=== PATIENT | female | born 1970 | race Caucasian/White ===

== ENCOUNTER 2017-03-04 16:06 | Emergency (ER) | payer MEDICAID, OTHER ==
[2017-03-04] MEDS ORDERED: Sodium Chloride 0.9% 10 ML Syringe FLUSH PRN (16:29)
[2017-03-04] MEDS ORDERED: HYDROmorphone 1 MG/ML Syringe IVPUSH ONE ×2 (16:29→17:14)
[2017-03-04] MEDS ORDERED: Ondansetron 4 MG/2 ML SDV IVPUSH ONE (16:29)
[2017-03-04] MEDS ORDERED: Ondansetron 4 MG/2 ML SDV ONE (16:33)
[2017-03-04] MEDS ORDERED: HYDROmorphone 1 MG/ML Syringe ONE (16:34)
--- NOTE | 2017-03-04 17:27 | EDM.PDOC ---
ED HPI GENERAL MEDICAL PROBLEM - General Chief Complaint: Upper Extremity Injury/Pain Stated Complaint: POSS DISLOCATED SHOULDER Source of Information: Reports: Patient History Limitations: Reports: No Limitations Right Clavicle Pain Score (Numeric/FACES): 8 - Related Data Allergies Allergy/AdvReac Type Severity Reaction Status Date / Time adhesive tape Allergy Swelling Verified 03/04/17 16:19 codeine Allergy Nausea and Verified 02/05/14 08:52 Vomiting povidone-iodine Allergy Hives Verified 12/12/13 10:01 [From Betadine] soap [From Betadine] Allergy Hives Verified 12/12/13 10:01 Home Meds: Home Meds Estrogen,Con/M-Progest Acet [Prempro 0.3 MG-1.5 MG] 1 tab PO DAILY 12/12/13 [ History] Valsartan [Diovan] 80 mg PO DAILY 02/05/14 [History] Past Medical History Cardiovascular History: Reports: Hypertension 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 History: Reports: GERD 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: Psychiatric History: Reports: Anxiety, Depression - Past Surgical History HEENT Surgical History: Reports: Tonsillectomy GI Surgical History: Reports: EGD Female Surgical History: Reports: Section, Oophorectomy Social & Family History - Tobacco Use Smoking Status *Q: Current Every Day Smoker Years of Tobacco use: 3 Packs/Tins Daily: 0.5 - Caffeine Use Caffeine Use: Reports: Coffee - Alcohol Use Days Per Week of Alcohol Use: 0 - Recreational Drug Use Recreational Drug Use: No Course - Vital Signs Last Recorded V/S: Last Vital Signs Temp 36.7 C 03/04/17 16:21 Pulse 97 03/04/17 16:21 Resp 18 03/04/17 16:21 BP 175/95 H 03/04/17 16:21 Pulse Ox 93 L 03/04/17 16:21 - Orders/Labs/Meds Orders: Active Orders 24 hr Category Date Time Status Peripheral IV Care [RC] . DIRECTED Care 03/04/17 16:29 Ordered Chest 1V Frontal [CR] Stat Exams 03/04/17 16:32 Ordered Shoulder Comp Rt [CR] Stat Exams 03/04/17 16:32 Ordered Sodium Chloride 0.9% [Saline Flush] Med 03/04/17 16:29 Ordered 10 ml FLUSH ASDIRECTED PRN Peripheral IV Insertion Adult [OM.PC] Routine Oth 03/04/17 16:29 Ordered Medication Orders Sodium Chloride (Saline Flush) 10 ml FLUSH ASDIRECTED PRN PRN Reason: Keep Vein Open Last Admin: 03/04/17 17:10 Dose: 10 ml Meds: Medications Generic Name Dose Route Start Last Admin Trade Name Freq PRN Reason Stop Dose Admin Sodium Chloride 10 ml 03/04/17 16:29 03/04/17 17:10 Saline Flush FLUSH 10 ml ASDIRECTED PRN Administration Keep Vein Open Discontinued Medications Generic Name Dose Route Start Last Admin Trade Name Freq PRN Reason Stop Dose Admin Hydromorphone HCl 1 mg 03/04/17 16:29 03/04/17 16:34 Dilaudid IVPUSH 03/04/17 16:30 1 mg ONETIME ONE Administration Hydromorphone HCl Confirm 03/04/17 16:34 03/04/17 17:09 Dilaudid Administered 03/04/17 16:35 Not Given Dose 1 mg .ROUTE .STK-MED ONE Hydromorphone HCl 1 mg 03/04/17 17:14 03/04/17 17:18 Dilaudid IVPUSH 03/04/17 17:15 1 mg ONETIME ONE Administration Ondansetron HCl 4 mg 03/04/17 16:29 03/04/17 16:30 Zofran IVPUSH 03/04/17 16:30 4 mg ONETIME ONE Administration Ondansetron HCl Confirm 03/04/17 16:33 03/04/17 16:34 Zofran Administered 03/04/17 16:34 Not Given Dose 4 mg .ROUTE .STK-MED ONE Departure - Discharge Information Referrals: PCP,None [Primary Care Provider] - - My Orders Last 24 Hours: My Active Orders 03/04/17 16:29 Peripheral IV Care [RC] . DIRECTED Sodium Chloride 0.9% [Saline Flush] 10 ml FLUSH ASDIRECTED PRN Peripheral IV Insertion Adult [OM.PC] Routine 03/04/17 16:32 Chest 1V Frontal [CR] Stat Shoulder Comp Rt [CR] Stat - Assessment/Plan Last 24 Hours: My Active Orders 03/04/17 16:29 Peripheral IV Care [RC] . DIRECTED Sodium Chloride 0.9% [Saline Flush] 10 ml FLUSH ASDIRECTED PRN Peripheral IV Insertion Adult [OM.PC] Routine 03/04/17 16:32 Chest 1V Frontal [CR] Stat Shoulder Comp Rt [CR] Stat
--- NOTE | 2017-03-04 17:29 | EDM.PDOC ---
<Ike Rincon - Last Filed: 03/04/17 17:27> ED HPI GENERAL MEDICAL PROBLEM - General Chief Complaint: Upper Extremity Injury/Pain Stated Complaint: POSS DISLOCATED SHOULDER Time Seen by Provider: 03/04/17 16:30 Right Clavicle Pain Score (Numeric/FACES): 8 - Related Data Allergies Allergy/AdvReac Type Severity Reaction Status Date / Time adhesive tape Allergy Swelling Verified 03/04/17 16:19 codeine Allergy Nausea and Verified 02/05/14 08:52 Vomiting povidone-iodine Allergy Hives Verified 12/12/13 10:01 [From Betadine] soap [From Betadine] Allergy Hives Verified 12/12/13 10:01 Home Meds: Home Meds Estrogen,Con/M-Progest Acet [Prempro 0.3 MG-1.5 MG] 1 tab PO DAILY 12/12/13 [ History] Valsartan [Diovan] 80 mg PO DAILY 02/05/14 [History] Acetaminophen/oxyCODONE [Percocet 325-5 MG] 1 tab PO Q4H PRN #20 tablet [Rx] Past Medical History Cardiovascular History: Reports: Hypertension 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 History: Reports: 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: Psychiatric History: Reports: Anxiety, Depression - Past Surgical History HEENT Surgical History: Reports: Tonsillectomy GI Surgical History: Reports: EGD Female Surgical History: Reports: Section, Oophorectomy Social & Family History - Tobacco Use Smoking Status *Q: Current Every Day Smoker Years of Tobacco use: 3 Packs/Tins Daily: 0.5 - Caffeine Use Caffeine Use: Reports: Coffee - Alcohol Use Days Per Week of Alcohol Use: 0 - Recreational Drug Use Recreational Drug Use: No Course - Vital Signs Last Recorded V/S: Last Vital Signs Temp 36.7 C 03/04/17 16:21 Pulse 97 03/04/17 16:21 Resp 18 03/04/17 16:21 BP 175/95 H 03/04/17 16:21 Pulse Ox 93 L 03/04/17 16:21 - Orders/Labs/Meds Meds: Medications Discontinued Medications Generic Name Dose Route Start Last Admin Trade Name Freq PRN Reason Stop Dose Admin Diphtheria/Tetanus/Acell Pertussis 0.5 ml 03/04/17 18:12 03/04/17 18:22 Adacel IM 03/04/17 18:13 0.5 ml .ONCE ONE Administration Hydromorphone HCl 1 mg 03/04/17 16:29 03/04/17 16:34 Dilaudid IVPUSH 03/04/17 16:30 1 mg ONETIME ONE Administration Hydromorphone HCl Confirm 03/04/17 16:34 03/04/17 17:09 Dilaudid Administered 03/04/17 16:35 Not Given Dose 1 mg .ROUTE .STK-MED ONE Hydromorphone HCl 1 mg 03/04/17 17:14 03/04/17 17:18 Dilaudid IVPUSH 03/04/17 17:15 1 mg ONETIME ONE Administration Ondansetron HCl 4 mg 03/04/17 16:29 03/04/17 16:30 Zofran IVPUSH 03/04/17 16:30 4 mg ONETIME ONE Administration Ondansetron HCl Confirm 03/04/17 16:33 03/04/17 16:34 Zofran Administered 03/04/17 16:34 Not Given Dose 4 mg .ROUTE .STK-MED ONE Sodium Chloride 10 ml 03/04/17 16:29 03/04/17 17:10 Saline Flush FLUSH 10 ml ASDIRECTED PRN Administration Keep Vein Open - Re-Assessments/Exams Free Text/Narrative Re-Assessment/Exam: 03/04/17 16:52 I evaluated the patient. I agree with the diagnosis of a right clavicle fracture. There is no scapular tenderness, and no pneumothorax on chest radiograph. No shoulder dislocation. Treatment will be with either a figure-of- eight or right arm sling. She will be prescribed some narcotic pain location, and follow-up with Ortho. Departure - Departure Disposition: Home, Self-Care 01 Clinical Impression: Clavicle fracture, shaft Qualifiers: Encounter type: initial encounter Fracture type: closed Fracture alignment: displaced Laterality: right Qualified Code(s): S42.021A - Displaced fracture of shaft of right clavicle, initial encounter for closed fracture - Discharge Information Prescriptions: Acetaminophen/oxyCODONE [Percocet 325-5 MG] 1 tab PO Q4H PRN #20 tablet PRN Reason: Pain Instructions: Clavicle Fracture, [id number] Referrals: PCP,None [Ordering Only Provider] - Germain Gruber MD [Physician] - Forms: ED Department Discharge, ED Return to Work/School Form Additional Instructions: you were given medication the ER that can affect your ability to drive and operate machinery. Do not drive or operative machinery within 12 hours of taking perception narcotic pain medication. take the the percocet 1-2 tabs PO every 4-6 as needed for pain. Do not drive or operate machinery within 12 hours as needed for pain. Percocet can be habit forming, I recommend you take as few of these as needed to control your pain. Wear the sling or the [id number] at all times. Ice the area 4 to 5 times a day for 10-15 minutes. Follow-up with orthopedics in 7-[address] Mendiola. Please call to schedule with him. Please return to the ER if your symptoms change or worsen. <Lianna Richter - Last Filed: 03/07/17 11:58> ED HPI GENERAL MEDICAL PROBLEM - General Source of Information: Reports: Patient History Limitations: Reports: No Limitations - History of Present Illness INITIAL COMMENTS - FREE TEXT/NARRATIVE: 46 year old female presents for evaluation and treatment of an injury to the right shoulder. Patient reports she was at work. I sounds like another co worker was carrying a pipe and she turned into the pipe getting struck in the right clavicle. Patient is currently holding her right clavicle. She has a superficial abrasion overlying the right clavicle. No head trauma. No shortness of breath or trouble breathing. Unsure of last tetanus. Patient is right handed. Trauma alter minor called upon patient arrival. Onset: Today Location: Reports: Upper Extremity, Right Review of Systems - Review of Systems Review Of Systems: See Below Respiratory: Denies: Shortness of Breath Musculoskeletal: Reports: Shoulder Pain (right) Skin: Reports: Erythema (superficial abrasion to the right clavicle) Neurological: Denies: Syncope ED EXAM, GENERAL - Physical Exam Exam: See Below Exam Limited By: No Limitations General Appearance: Alert, WD/WN, Anxious, Moderate Distress Eye Exam: Bilateral Eye: Normal Inspection, PERRL Ears: Normal External Exam Nose: Normal Inspection Throat/Mouth: Normal Inspection, Normal Voice, No Airway Compromise Respiratory/Chest: No Respiratory Distress, Lungs Clear, Normal Breath Sounds, Chest Non-Tender Cardiovascular: Normal Peripheral Pulses, Regular Rate, Rhythm, No Murmur Extremities: Other (significant tenderness over the right clavicle; minimal discomfort with palpation of the right shoulder, no obvious dislocation) Neurological: Alert, Oriented Psychiatric: Anxious Skin Exam: Warm, Dry, Erythema (approximately 10cm in diameter superficial abrasion to the right clavicle) Course - Radiology Interpretation Free Text/Narrative:: xray of the right shoulder shows no acute fractures or dislocations xray of the chest 1 view shows no acute intrathoracic process xray of the right clavicle shows a midshaft slightly displaced right clavicle fracture - Re-Assessments/Exams Free Text/Narrative Re-Assessment/Exam: 03/04/17 17:52 I reviewed the xrays with the patient. She elected to have both a figure 8 splint and a shoulder sling. She did require a 2nd dose of 1mg IV dilaudid for pain control. Given the superficial abrasion overlying the right clavicle we will update her tetanus today. Dr. Rincon has seen the patient and agrees with the evaluation and treatment plan. Will discharge home with instructions to follow-up with orthopedics. Discharge instructions as documented. Departure - Departure Time of Disposition: 17:52
[2017-03-04] MEDS ORDERED: Diphtheria,Pertussis(Acell),Tetanus Vaccine 0.5 ML SDV IM ONE (18:12)
--- NOTE | 2017-03-05 07:38 | CR ---
Chest: Frontal view of the chest was obtained. Comparison: No prior chest x-ray is available. Heart size and mediastinum are within normal limits. Fracture is noted within the mid shaft of the clavicle with approximately one half to three-quarter width displacement. This is seen on the right side. No additional bony abnormality is seen. Lungs are clear. Impression: 1. Mildly displaced right clavicle fracture. 2. Nothing acute is otherwise seen on frontal chest x-ray. Diagnostic code #3
--- NOTE | 2017-03-05 07:38 | CR ---
Right shoulder: Two views of the right shoulder were obtained. Fracture is identified within the mid shaft of the right clavicle with displacement by about a three-quarter shaft width. Glenohumeral joint and acromioclavicular joint are within normal limits. No additional fracture or other bony abnormality is seen. Impression: 1. Mildly displaced right clavicle fracture. 2. No additional abnormality is identified on two-view right humerus study. Diagnostic code #3
== END 2017-03-04 18:40 | disposition home or self-care (01) ==
LOC: JD.ED 16:06
DX: S42.021A Displaced fracture of shaft of right clavicle, initial encounter for closed fracture (principal); W22.8XXA Striking against or struck by other objects, initial encounter
CPT/HCPCS: 71010; 73030; 90471; 90715; 96374; 96375; 96376; 99284; J1170; J2405; J7050

== ENCOUNTER → 2017-05-20 | Day surgery (SDC) | payer MEDICAID ==
--- NOTE | 2017-05-14 18:32 | HP ---
DATE OF ADMISSION: 05/20/2017 HISTORY: This is the first orthopedic outpatient admission for surgery for this 47-year- old female who is being scheduled for an open reduction and internal fixation of a nonunion for right clavicle fracture, midshaft. The patient suffered injury on 03/04/2017, was treated initially with conservative treatment program. The patient continued to have pain and movement within the fracture site with x-ray showing minimal or no callus formation. The patient was then seen in the Orthopedic Clinic, evaluated, and after seeing the failure of the bone to form around the fracture site, nonunion was declared and she is now being scheduled for an open reduction and internal fixation of the clavicle fracture by plate fixation. She understands the procedure and the area of surgery will be across the clavicle with an exposed incision. Also, she recognizes that there may be numbness on the chest wall area after the surgery. She has consented to surgery. ALLERGIES: Codeine and some tape. PAST MEDICAL HISTORY: The patient has a history of high blood pressure. CURRENT MEDICATIONS: Include Flexeril, Percocet, valsartan, Prempro, vitamin D3. PAST SURGICAL HISTORY: Positive. She has had previous and hysterectomy. Notes no anesthesia complications or problems. She has a negative bleeding history, negative blood clot history. SOCIAL HISTORY: She is a nonsmoker and alcohol is very rare occasional, social drink. PHYSICAL EXAMINATION: GENERAL: Today reveals a well-developed, well-nourished, 47-year-old female, in moderate distress. HEAD, EYES, EARS, NOSE, AND THROAT: Normocephalic. NECK: Supple. CHEST: Clear. COR: Regular rate. ABDOMEN: Soft. : Intact. EXTREMITIES: Examination of the right shoulder clavicle area shows positive clavicle deformity and an area of fracture. Positive pain with any type of direct pressure or palpation. IMAGING DATA: X-rays show positive midshaft fracture with slight offset. No callus formation noted. Clear fracture line still present after 8 weeks. ASSESSMENT: Right clavicle fracture, midshaft nonunion. PLAN: The patient is to undergo surgical open reduction and internal fixation by plate fixation and possible bone grafting may be needed. MMODAL /[id number] LUISA
[~2017-05-20] MED LIST: Acetaminophen/oxyCODONE 325-5 MG Tab PO PRN; Cyclobenzaprine 10 MG Tab PO PRN; Dexamethasone 4 MG/ML SDV ONE; HYDROmorphone 0.5 MG/0.5 ML Syringe IVPUSH PRN; HYDROmorphone 0.5 MG/0.5 ML Syringe ONE; HYDROmorphone 1 MG/ML Syringe ONE; Ketorolac 30 MG/ML SDV IVPUSH PRN; Ketorolac 30 MG/ML SDV ONE; Lactated Ringers 1,000 ML IV SCH; Lidocaine 1% 4 ML ONE; Lidocaine 1%/Sod Bicarbonate in NS 8.4% 1 ML Syringe PRN; Meperidine PF 50 MG/ML Syringe IVPUSH PRN; Midazolam 1 MG/ML 2 ML SDV ONE; Morphine 15 MG Tab.ER PO ONE; Ondansetron 4 MG/2 ML SDV IVPUSH PRN; Ondansetron 4 MG/2 ML SDV ONE; Promethazine 6.25 MG in Sodium Chloride 0.9% 50 ML IV PRN; Propofol 200 MG/20 ML SDV ONE; Rocuronium 50 MG/5 ML Vial ONE; Sodium Chloride 0.9% 10 ML Syringe FLUSH PRN; ceFAZolin 1 GM Vial ONE; diphenhydrAMINE 50 MG/ML SDV IVPUSH PRN; fentaNYL 100 MCG/2 ML SDV IVPUSH PRN; fentaNYL 100 MCG/2 ML SDV ONE; fentaNYL 250 MCG/5 ML SDV ONE
--- NOTE | 2017-05-20 07:43 | PCM.PREANE ---
Preanesthetic Assessment - Procedure Proposed Procedure: ORIF right clavicle fracture - Anesthesia/Transfusion/Family Hx Anesthesia History: Prior Anesthesia Without Reaction Family History of Anesthesia Reaction: No Transfusion History: No Prior Transfusion(s) - Review of Systems General: No Symptoms Pulmonary: No Symptoms, Other (asthma ) Cardiovascular: Other (HTN) 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: No Symptoms Neurological: Numbness (from left elbow on down after awakening this am) Other: Reports: None, Anxiety - Physical Assessment NPO Status Date: 05/19/17 NPO Status Time: 20:00 Pulse: 85 O2 Sat by Pulse Oximetry: 98 Respiratory Rate: 16 Blood Pressure: 139/97 Temperature: 37.6 C Height: 1.7 m Weight: 77.564 kg ASA Class: 2 Mental Status: Alert & Oriented x3 Airway Class: Mallampati = 2 Dentition: Reports: Normal Dentition Thyro-Mental Finger Breadths: 3 Mouth Opening Finger Breadths: 3 ROM/Head Extension: Full Lungs: Clear to Auscultation, Normal Respiratory Effort Cardiovascular: Regular Rate, Regular Rhythm - Allergies Allergies/Adverse Reactions: Allergies Allergy/AdvReac Type Severity Reaction Status Date / Time adhesive tape Allergy Swelling Verified 05/19/17 14:57 povidone-iodine Allergy Hives Verified 05/19/17 14:57 [From Betadine] soap [From Betadine] Allergy Hives Verified 05/19/17 14:57 codeine AdvReac Nausea and Verified 05/19/17 14:57 Vomiting - Blood Blood Available: Yes Product(s) Available: None - Anesthesia Plan Pre-Op Medication Ordered: None - Acknowledgements Anesthesia Type Planned: General Anesthesia Pt an Appropriate Candidate for the Planned Anesthesia: Yes Alternatives and Risks of Anesthesia Discussed w Pt/Guardian: Yes Pt/Guardian Understands and Agrees with Anesthesia Plan: Yes PreAnesthesia Questionnaire HEENT History: Reports: None Cardiovascular History: Reports: Hypertension Respiratory History: Reports: Asthma 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 History: Reports: Chronic Constipation, GERD Genitourinary History: Reports: None 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 Musculoskeletal History: Reports: None Neurological History: Reports: Migraines Psychiatric History: Reports: Anxiety, Depression Endocrine/Metabolic History: Reports: None Hematologic History: Reports: None Immunologic History: Reports: None Oncologic (Cancer) History: Reports: None Dermatologic History: Reports: None - Past Surgical History Head Surgeries/Procedures: Reports: None HEENT Surgical History: Reports: None Cardiovascular Surgical History: Reports: None GI Surgical History: Reports: Colonoscopy, EGD Female Surgical History: Reports: None, Section, Hysterectomy Male Surgical History: Endocrine Surgical History: Reports: None Neurological Surgical History: Reports: None Musculoskeletal Surgical History: Reports: None Oncologic Surgical History: Reports: None Dermatological Surgical History: Reports: None - SUBSTANCE USE Smoking Status *Q: Former Smoker Tobacco Use Within Last Twelve Months: Cigarettes Days Per Week of Alcohol Use: 0 Recreational Drug Use History: No - HOME MEDS Home Medications: Home Meds Acetaminophen/oxyCODONE [Percocet 325-5 MG] 1 tab PO Q6H PRN 05/19/17 [History] Cyclobenzaprine [Flexeril] 10 mg PO TID PRN 05/19/17 [History] Estrogen,Con/M-Progest Acet [Prempro 0.45-1.5 MG] 1 tab PO DAILY 05/19/17 [ History] Valsartan/Hydrochlorothiazide [Valsartan-Hctz 80-12.5 mg Tab] 1 tab PO DAILY [History] - CURRENT (IN HOUSE) MEDS Current Meds: Current Medications Lactated Ringer's (Ringers, Lactated) 1,000 mls @ 125 mls/hr IV ASDIRECTED CHIKIS Stop: 05/20/17 23:00 Lidocaine/Sodium Bicarbonate (Buffered Lidocaine 1% In Ns 8.4%) 0.25 ml .XX ONETIME PRN PRN Reason: Prior to IV Start Stop: 05/20/17 18:00 Sodium Chloride (Saline Flush) 10 ml FLUSH ASDIRECTED PRN PRN Reason: Keep Vein Open Stop: 05/20/17 18:00 Discontinued Medications Dexamethasone (Dexamethasone) Confirm Administered Dose 4 mg .ROUTE .STK-MED ONE Stop: 05/20/17 07:26 Fentanyl (Sublimaze) Confirm Administered Dose 250 mcg .ROUTE .STK-MED ONE Stop: 05/20/17 07:27 Lidocaine HCl (Xylocaine-Mpf 1%) Confirm Administered Dose 4 mls @ as directed .ROUTE .STK-MED ONE Stop: 05/20/17 07:26 Midazolam HCl (Versed 1 Mg/Ml) Confirm Administered Dose 2 mg .ROUTE .STK-MED ONE Stop: 05/20/17 07:27 Ondansetron HCl (Zofran) Confirm Administered Dose 4 mg .ROUTE .STK-MED ONE Stop: 05/20/17 07:26 Propofol (Diprivan 20 Ml) Confirm Administered Dose 200 mg .ROUTE .STK-MED ONE Stop: 05/20/17 07:27 Rocuronium [place] (Zemuron) Confirm Administered Dose 50 mg .ROUTE .STK-MED ONE Stop: 05/20/17 07:26
[2017-05-20] MEDS: Bupivacaine 0.5%/EPINEPHrine 1:200,000 50 ML MDV ONE ×2 (09:01→10:28)
--- NOTE | 2017-05-20 11:16 | CR ---
Clavicle: Single fluoroscopic spot view was obtained of the right clavicle. Comparison: Previous right clavicle x-ray of 05/14/17. Study shows placement of plate and screws affixing previous clavicle fracture. Fluoroscopy time given as 2.7 seconds. Impression: 1. Findings as noted above. Diagnostic code #2
--- NOTE | 2017-05-20 11:21 | PCM.POSTAN ---
POST ANESTHESIA ASSESSMENT - MENTAL STATUS Mental Status: Alert, Oriented - VITAL SIGNS Pulse Rate: 105 SaO2: 98 Resp Rate: 16 Blood Pressure: 154/96 Temperature: 36.4 C - RESPIRATORY Respiratory Status: Respiratory Rate WNL, Airway Patent, O2 Saturation Stable, Supplemental Oxygen - CARDIOVASCULAR CV Status: Pulse Rate WNL, Blood Pressure Stable - GASTROINTESTINAL GI Status: No Symptoms - PAIN Pain Score: 0 - POST OP HYDRATION Hydration Status: Adequate & Stable
--- NOTE | 2017-05-21 12:59 | OR ---
DATE OF OPERATION: 05/20/2017 SURGEON: Germain Gruber MD PREOPERATIVE DIAGNOSIS: Displaced midshaft fracture, right clavicle, nonunion. POSTOPERATIVE DIAGNOSIS: Displaced midshaft fracture, right clavicle, nonunion. ANESTHESIA: General. OPERATION PERFORMED: Open reduction and internal fixation of midshaft fracture, right clavicle by plate fixation and bone graft treatment of the fracture cleft and site. DESCRIPTION OF PROCEDURE: The patient was taken to the operative room in supine position, under general anesthesia. The patient was in the beach chair position and the right shoulder and arm were prepped and draped by standard technique for approach to the right clavicle. Once prepping and draping was completed, the operation then proceeded with marking skin over the clavicle area and over the fracture site and the incision was carried on a superior-anterior type position penetrating through the skin to subcutaneous tissues. The dissection was carried down to the bone structure itself. No nerves were identified with this approach, but certainly there could have been some nerve structures present. The patient had been warned previously prior to surgery about the numbness effect, any nerve would be isolated and damage. Once the soft tissues were reflected away, the deep fascial tissues were reflected off the clavicle itself and then periosteal elevators were used to reflect away the periosteum on the clavicle medially and laterally. The fracture itself was an oblique type fracture with elevation of the medial end and depression of the lateral end of the fracture. The nonunion site was then taken down by sharp dissection and blunt dissection. Once all the scar tissue and immature callus type tissue was removed, the bone fracture itself was then evaluated for reduction. The end of the bones was typically beginning to and a Michela pin was then used to drill and perforate the ends of both bones to improve the circulation for the healing effect on the bone itself. Once that was completed, the operation proceeded with a trial fitting of plates. Initially, 8-hole plate was applied, but was found to be too long, extend too long medially and then that was reduced down to a 6-hole plate for compression of the fracture site. Once the plate was identified, the operation proceeded with reduction of the fracture and held in place and then the plate was fixated medially in the oblong screw hole for compression and then with the fracture held in place, the lateral side of the plate to the fracture was the second compression screw was then added. Once that was in place, the operation proceeded with tightening of these 2 screws and to compress the fracture into the bone and then the operation proceeded with the 2 screw holes that were closed to the fracture site being used cortical screws 3.5, and then the 2 distal screws were locking screws. Once the plate was fixated solidly shoulder was moved, the plate was held firmly. No indication of any movement was noted. There was still some fracture cleft area mostly due to the debridement process. This area was then packed with bone graft and packed into the cleft area on both the superior and inferior side completing fracture surgery. The operation proceeded with light irrigation. The deep fascial tissues were closed with 2-0 Vicryl. X-rays were taken and these were found to be very satisfactory and then the operation proceeded with closure of subcutaneous tissues with 3-0 Vicryl and then the skin was closed with a running 3-0 Prolene subcuticular. The patient was placed in standard dressings with a sling, also at the completion of the subcuticular stitch, local anesthetic was then placed in the wound area. The patient tolerated the procedure well. She left the operative room in stable condition with a dressings and sling in place. ESTIMATED BLOOD LOSS: MMODAL /[id number]
== END | disposition home or self-care (01) ==
LOC: JD.SDS 07:17
PROVIDERS: ATTEND Specialist
DX: S42.021A Displaced fracture of shaft of right clavicle, initial encounter for closed fracture (principal); I10 Essential (primary) hypertension; F41.9 Anxiety disorder, unspecified; J45.909 Unspecified asthma, uncomplicated; K59.09 Other constipation; K21.9 Gastro-esophageal reflux disease without esophagitis; F32.9 Major depressive disorder, single episode, unspecified; X58.XXXA Exposure to other specified factors, initial encounter; Z88.5 Allergy status to narcotic agent; Z91.09 Other allergy status, other than to drugs and biological substances; Z90.710 Acquired absence of both cervix and uterus; Z79.899 Other long term (current) drug therapy
CPT/HCPCS: 23485; 76000; A9270; C1713; J0690; J1100; J1170; J1885; J2250; J2405; J3010; J7120; 00450; J2704

== ENCOUNTER 2017-11-16 03:24 | Emergency (ER) | payer MEDICAID ==
[2017-11-16] MEDS ORDERED: HYDROmorphone 0.5 MG/0.5 ML SYRINGE IVPUSH ONE ×3 (03:49→08:12)
[2017-11-16] MEDS ORDERED: Metoclopramide 10 MG/2 ML SDV IVPUSH ONE (03:49)
[2017-11-16] MEDS ORDERED: Hyoscyamine 0.125 MG Tab.SL SL ONE (03:51)
--- NOTE | 2017-11-16 03:51 | EDM.PDOC ---
Addendum entered and electronically signed by Severo Melton MD 11/16/17 09:53 : Her K was low at 2.9. I forgot to mention it to her. I called her back back and told her to take some. She had a prescription because she had a history of low potassium. Original Note: <Severo Melton - Last Filed: 11/16/17 09:17> ED HPI GENERAL MEDICAL PROBLEM - General Chief Complaint: Abdominal Pain Stated Complaint: abdominal pain Time Seen by Provider: 11/16/17 03:48 - Related Data Allergies Allergy/AdvReac Type Severity Reaction Status Date / Time adhesive tape Allergy Swelling Verified 11/16/17 03:34 povidone-iodine Allergy Hives Verified 11/16/17 03:34 [From Betadine] soap [From Betadine] Allergy Hives Verified 11/16/17 03:34 codeine AdvReac Nausea and Verified 11/16/17 03:34 Vomiting Home Meds: Home Meds Estrogen,Con/M-Progest Acet [Prempro 0.45-1.5 MG] 1 tab PO DAILY 05/19/17 [ History] Valsartan/Hydrochlorothiazide [Valsartan-Hctz 80-12.5 mg Tab] 1 tab PO DAILY [History] Cholecalciferol (Vitamin D3) [Vitamin D3] 1 tab PO BID 05/20/17 [History] Omeprazole Magnesium [Prilosec Otc] 1 tab PO DAILY 05/20/17 [History] Dicyclomine HCl [Bentyl] 10 mg PO QID PRN #20 capsule 11/16/17 [Rx] Hydrocodone/Acetaminophen [Hydrocodon-Acetaminophen 5-325] 1 - 2 each PO Q6HR PRN #10 tablet 11/16/17 [Rx] Nitrofurantoin Monohyd/M-Cryst [Macrobid 100 mg Capsule] 100 mg PO BID #10 capsule 11/16/17 [Rx] Course - Vital Signs Last Recorded V/S: Last Vital Signs Temp 36.6 C 11/16/17 03:30 Pulse 89 11/16/17 03:30 Resp 16 11/16/17 03:30 BP 132/94 H 11/16/17 03:30 Pulse Ox 94 L 11/16/17 03:30 - Orders/Labs/Meds Labs: Laboratory Tests 11/16/17 11/16/17 11/16/17 Range/Units 04:00 04:00 07:55 WBC 15.43 H (3.98-10.04) K/mm3 RBC 4.53 (3.98-5.22) M/mm3 Hgb 13.7 (11.2-15.7) gm/L Hct 38.8 (34.1-44.9) % MCV 85.7 (79.4-94.8) fl MCH 30.2 (25.6-32.2) pg MCHC 35.3 (32.2-35.5) g/dl RDW Std Deviation 37.9 (36.4-46.3) fL Plt Count 303 (182-369) K/mm3 MPV 10.4 (9.4-12.3) fl Neutrophils % (Manual) 76 H (40-60) % Band Neutrophils % 0 (0-10) % Lymphocytes % (Manual) 14 L (20-40) % Atypical Lymphs % 0 % Monocytes % (Manual) 4 (2-10) % Eosinophils % (Manual) 3 (0.7-5.8) % Basophils % (Manual) 3 H (0.1-1.2) Platelet Estimate Adequate RBC Morph Comment Normal Sodium 137 (136-145) mEq/L Potassium 2.9 L (3.5-5.1) mEq/L Chloride 101 (98-107) mEq/L Carbon Dioxide 26 (21-32) mEq/L Anion Gap 12.9 (5-15) BUN 11 (7-18) mg/dL Creatinine 0.9 (0.55-1.02) mg/dL Est Cr Clr Drug Dosing 75.95 mL/min Estimated GFR (MDRD) > 60 (>60) mL/min BUN/Creatinine Ratio 12.2 L (14-18) Glucose 106 (74-106) mg/dL Calcium 8.2 L (8.5-10.1) mg/dL Total Bilirubin 0.3 (0.2-1.0) mg/dL GGT 32 (5-55) U/L AST 16 (15-37) U/L ALT 27 (14-59) U/L Alkaline Phosphatase 59 (46-116) U/L C-Reactive Protein < 0.2 (<1.0) mg/dL Total Protein 6.5 (6.4-8.2) g/dl Albumin 3.5 (3.4-5.0) g/dl Globulin 3.0 gm/dL Albumin/Globulin Ratio 1.2 (1-2) Lipase 156 (73-393) U/L Urine Color Yellow (Yellow) Urine Appearance Clear (Clear) Urine pH 7.0 (5.0-8.0) Ur Specific [place] 1.015 (1.005-1.030) Urine Protein Negative (Negative) Urine Glucose (UA) Negative (Negative) Urine Ketones Negative (Negative) Urine Occult Blood Negative (Negative) Urine Nitrite Positive H (Negative) Urine Bilirubin Negative (Negative) Urine Urobilinogen 0.2 (0.2-1.0) Ur Leukocyte Esterase Negative (Negative) Urine RBC 0-5 (0-5) /hpf Urine WBC 5-10 H (0-5) /hpf Ur Epithelial Cells 10-20 H (0-5) /hpf Urine Bacteria Rare (FEW) /hpf Urine Mucus Not seen (FEW) /hpf Meds: Medications Discontinued Medications Generic Name Dose Route Start Last Admin Trade Name Freq PRN Reason Stop Dose Admin Diatrizoate Meglum/Diatrizoate Sod 120 ml 11/16/17 06:54 11/16/17 07:05 Gastrografin 37% PO 11/16/17 06:55 90 ml ONETIME ONE Administration Hydromorphone HCl 0.5 mg 11/16/17 03:49 11/16/17 04:12 Dilaudid IVPUSH 11/16/17 03:50 0.5 mg ONETIME ONE Administration Hydromorphone HCl 1 mg 11/16/17 05:02 11/16/17 05:08 Dilaudid IVPUSH 11/16/17 05:03 1 mg ONETIME ONE Administration Hydromorphone HCl 0.5 mg 11/16/17 08:12 11/16/17 08:26 Dilaudid IVPUSH 11/16/17 08:13 0.5 mg ONETIME ONE Administration Hyoscyamine 0.125 mg 11/16/17 03:51 11/16/17 04:08 Hyomax-Sl SL 11/16/17 03:52 0.125 mg ONETIME ONE Administration Dextrose/Sodium Chloride 1,000 mls @ 500 mls/hr 07/22/18 04:00 11/16/17 04:11 Dextrose 5%-Normal Saline IV 500 mls/hr ASDIRECTED CHIKIS Administration Iopamidol 100 ml 11/16/17 06:54 11/16/17 07:05 Isovue-300 (61%) IVPUSH 11/16/17 06:55 100 ml ONETIME ONE Administration Ketorolac Tromethamine 30 mg 11/16/17 04:00 11/16/17 04:15 Toradol IVPUSH 30 mg ONETIME CHIKIS Administration Metoclopramide HCl 7.5 mg 11/16/17 03:49 11/16/17 04:11 Reglan IVPUSH 11/16/17 03:50 7.5 mg ONETIME ONE Administration Sodium Chloride 10 ml 11/16/17 06:54 11/16/17 07:05 Saline Flush FLUSH 10 ml ONETIME PRN Administration IV FLUSH - Re-Assessments/Exams Free Text/Narrative Re-Assessment/Exam: 11/16/17 09:[address] Yang. Her CT shows increasing size of a right sided liver cyst which is incidental. Previous cholecystectomy. Mild increased stool within the colon. Small cysts within the right ovary. Mild amount of fluid is seen within the pelvis. Fluid is most likely physiologic. Nothing acute is appreciated. She still had some pain so I ordered more dilaudid 0.5mg IV. Her UA had nitrites and WBCs but some epithelial cells. This could be contaminated so I ordered a culture. She says she did have some urinary symptoms. She did take an Azo. This may be a real UTI. I will start treatment and follow up with the urine culture. I will get her on some pepcid daily. She takes prilosec OTC already. I will also get her on some bentyl and hydrocodone as needed. Departure - Departure Time of Disposition: 09:25 Disposition: Home, Self-Care 01 Condition: Good Clinical Impression: Abdominal pain Qualifiers: Abdominal location: epigastric Qualified Code(s): R10.13 - Epigastric pain Gastritis Qualifiers: Gastritis type: unspecified gastritis Chronicity: acute Gastritis bleeding: without bleeding Qualified Code(s): K29.00 - Acute gastritis without bleeding UTI (urinary tract infection) Qualifiers: Urinary tract infection type: site unspecified Hematuria presence: without hematuria Qualified Code(s): N39.0 - Urinary tract infection, site not specified - Discharge Information *PRESCRIPTION DRUG MONITORING PROGRAM REVIEWED*: No *COPY OF PRESCRIPTION DRUG MONITORING REPORT IN PATIENT PAUL: No Prescriptions: Hydrocodone/Acetaminophen [Hydrocodon-Acetaminophen 5-325] 1 - 2 each PO Q6HR PRN #10 tablet PRN Reason: Pain Dicyclomine HCl [Bentyl] 10 mg PO QID PRN #20 capsule PRN Reason: Pain Nitrofurantoin Monohyd/M-Cryst [Macrobid 100 mg Capsule] 100 mg PO BID #10 capsule Instructions: Gastritis, Adult, Tfib-hy-Gris, Urinary Tract Infection, Adult Referrals: Jailene Morris [employer]NAGER [Primary Care Provider] - 1 Week Forms: ED Department Discharge Additional Instructions: Take your medication as prescribed. Take the macrobid 2 times per day for 5 days. Take the bentyl and hydrocodone as needed for abdominal pain. Take some mag citrate to help with the constipation. Follow up with your provider in 1 week. Take pepcid daily for 1 week. Please return if you are worse. Start off with clear liquids for a day and advance your diet as tolerated. <Jacob Yang - Last Filed: 11/19/17 07:03> ED HPI GENERAL MEDICAL PROBLEM - General Source of Information: Reports: Patient, Family (spouse) History Limitations: Reports: No Limitations - History of Present Illness INITIAL COMMENTS - FREE TEXT/NARRATIVE: 47-year-old female presents to the ED with diffuse epigastric pain which is strongly colicky. He has had previous cholecystectomy she believes about 16 years ago. Is it feels very similar to her previous gallbladder attacks. She states it started after eating some oats and nuts. After eating supper which was barbecued pork and baked potato with sour cream pain worsened and became even more intense. It is primarily felt in the epigastrium and lower retrosternal area and radiate slightly through to her back. Gated nausea. She did vomit after taking some baking soda by mouth. She believes that this provided some temporary relief. She'll be drinking Pepsi in an effort to burp and belch to try and get some relief but this was unsuccessful as well. She gets the same kind of pain when she takes codeine and either tablet or in a cough syrup. She rarely experiences heartburn and never has used Tums or Rolaids. She has been unable to sleep all night. No position is comfortable. Onset: Sudden Onset Date: 11/15/17 Onset Time: 15:00 Duration: Hour(s):, Colic, Constant, Getting Worse, Waxing/Waning Location: Reports: Abdomen (Epigastrium ) Quality: Reports: Ache, Pressure, Sharp, Stabbing Severity: Moderate (8 out of 10) Improves with: Reports: None Worsens with: Reports: None Context: Reports: Other (Spontaneous occurrence after eating some nuts and oatmeal cookie.). Denies: Activity, Exercise, Lifting, Sick Contact, Trauma Associated Symptoms: Reports: Loss of Appetite, Nausea/Vomiting. Denies: Confusion, Chest Pain, Cough, cough w sputum, Diaphoresis, Fever/Chills, Headaches, Malaise, Rash, Seizure, Shortness of Breath, Syncope, Weakness Treatments BOOM TENDER: Reports: Other (see below) (Only sodium bicarbonate.) Upper Abdomen Pain Score (Numeric/FACES): 10 Past Medical History HEENT History: Reports: None Cardiovascular History: Reports: Hypertension Respiratory History: Reports: Asthma 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 History: Reports: Chronic Constipation, GERD Genitourinary History: Reports: None CORPORATE SCHEDULER History: Reports: None Musculoskeletal History: Reports: None Neurological History: Reports: CVA, Migraines Psychiatric History: Reports: Anxiety, Depression Endocrine/Metabolic History: Reports: None Hematologic History: Reports: None Immunologic History: Reports: None Oncologic (Cancer) History: Reports: None Dermatologic History: Reports: None - Past Surgical History Head Surgeries/Procedures: Reports: None HEENT Surgical History: Reports: None Cardiovascular Surgical History: Reports: None GI Surgical History: Reports: Cholecystectomy, Colonoscopy, EGD Female Surgical History: Reports: None, Section, Hysterectomy Endocrine Surgical History: Reports: None Neurological Surgical History: Reports: None Musculoskeletal Surgical History: Reports: None Oncologic Surgical History: Reports: None Dermatological Surgical History: Reports: None Social & Family History - Family History Endocrine/Metabolic: Reports: Diabetes, type II - Tobacco Use Smoking Status *Q: Current Some Day Smoker Years of Tobacco use: 10 Packs/Tins Daily: 0.1 - Caffeine Use Caffeine Use: Reports: None - Recreational Drug Use Recreational Drug Use: No - Living Situation & Occupation Living situation: Reports: Occupation: Employed [employer] [facility] [employer] [facility] - Review of Systems Review Of Systems: See Below Constitutional: Reports: Decreased Appetite. Denies: Fever, Chills, Malaise, Weakness, Fatigue, Weight Loss HEENT: Reports: No Symptoms Respiratory: Reports: Shortness of Breath (Deep breathing makes the abdominal pain worse.) Cardiovascular: Reports: No Symptoms, Chest Pain. Denies: Blood Pressure Problem (Assessment pressure lower retrosternal area.), Claudication, Dyspnea on Exertion, Lightheadedness, Orthopnea Endocrine: Reports: Fatigue GI/Abdominal: Reports: Abdominal Pain (From not being able to sleep.), Constipation ( See history of present illness), Decreased Appetite : Reports: No Symptoms Musculoskeletal: Reports: No Symptoms Skin: Reports: No Symptoms Neurological: Reports: No Symptoms Psychiatric: Reports: No Symptoms Hematologic/Lymphatic: Reports: No Symptoms Immunologic: Reports: No Symptoms ED EXAM, GI/ABD - Physical Exam Exam: See Below Exam Limited By: No Limitations General Appearance: Alert, WD/WN, No Apparent Distress Eyes: Bilateral: Normal Appearance (No jaundice.) Respiratory/Chest: No Respiratory Distress, Lungs Clear, Normal Breath Sounds, No Accessory Muscle Use, Chest Non-Tender Cardiovascular: Normal Peripheral Pulses, Regular Rate, Rhythm, No Edema, No Gallop, No Murmur, No Rub GI/Abdominal Exam: Normal Bowel Sounds, Soft, Non-Tender, No Organomegaly, No Mass, Pelvis Stable, Guarding (Very tender in the epigastrium of her abdomen. Mild guarding.), Tender. No: Rigid, Rebound Back Exam: Normal Inspection, Full Range of Motion. No: CVA Tenderness (L), CVA Tenderness (R) Extremities: Normal Inspection, Normal Range of Motion, Non-Tender, No Pedal Edema, Normal Capillary Refill Neurological: Alert, Oriented, CN II-XII Intact, Normal Cognition, No Motor/ Sensory Deficits Psychiatric: Normal Affect, Normal Mood Skin Exam: Warm, Dry, Intact, Normal Color, No Rash Course - Orders/Labs/Meds Labs: Laboratory Tests 11/16/17 11/16/17 11/16/17 Range/Units 04:00 04:00 07:55 WBC 15.43 H (3.98-10.04) K/mm3 RBC 4.53 (3.98-5.22) M/mm3 Hgb 13.7 (11.2-15.7) gm/L Hct 38.8 (34.1-44.9) % MCV 85.7 (79.4-94.8) fl MCH 30.2 (25.6-32.2) pg MCHC 35.3 (32.2-35.5) g/dl RDW Std Deviation 37.9 (36.4-46.3) fL Plt Count 303 (182-369) K/mm3 MPV 10.4 (9.4-12.3) fl Neutrophils % (Manual) 76 H (40-60) % Band Neutrophils % 0 (0-10) % Lymphocytes % (Manual) 14 L (20-40) % Atypical Lymphs % 0 % Monocytes % (Manual) 4 (2-10) % Eosinophils % (Manual) 3 (0.7-5.8) % Basophils % (Manual) 3 H (0.1-1.2) Platelet Estimate Adequate RBC Morph Comment Normal Sodium 137 (136-145) mEq/L Potassium 2.9 L (3.5-5.1) mEq/L Chloride 101 (98-107) mEq/L Carbon Dioxide 26 (21-32) mEq/L Anion Gap 12.9 (5-15) BUN 11 (7-18) mg/dL Creatinine 0.9 (0.55-1.02) mg/dL Est Cr Clr Drug Dosing 75.95 mL/min Estimated GFR (MDRD) > 60 (>60) mL/min BUN/Creatinine Ratio 12.2 L (14-18) Glucose 106 (74-106) mg/dL Calcium 8.2 L (8.5-10.1) mg/dL Total Bilirubin 0.3 (0.2-1.0) mg/dL GGT 32 (5-55) U/L AST 16 (15-37) U/L ALT 27 (14-59) U/L Alkaline Phosphatase 59 (46-116) U/L C-Reactive Protein < 0.2 (<1.0) mg/dL Total Protein 6.5 (6.4-8.2) g/dl Albumin 3.5 (3.4-5.0) g/dl Globulin 3.0 gm/dL Albumin/Globulin Ratio 1.2 (1-2) Lipase 156 (73-393) U/L Urine Color Yellow (Yellow) Urine Appearance Clear (Clear) Urine pH 7.0 (5.0-8.0) Ur Specific [place] 1.015 (1.005-1.030) Urine Protein Negative (Negative) Urine Glucose (UA) Negative (Negative) Urine Ketones Negative (Negative) Urine Occult Blood Negative (Negative) Urine Nitrite Positive H (Negative) Urine Bilirubin Negative (Negative) Urine Urobilinogen 0.2 (0.2-1.0) Ur Leukocyte Esterase Negative (Negative) Urine RBC 0-5 (0-5) /hpf Urine WBC 5-10 H (0-5) /hpf Ur Epithelial Cells 10-20 H (0-5) /hpf Urine Bacteria Rare (FEW) /hpf Urine Mucus Not seen (FEW) /hpf Meds: Medications Discontinued Medications Generic Name Dose Route Start Last Admin Trade Name Freq PRN Reason Stop Dose Admin Diatrizoate Meglum/Diatrizoate Sod 120 ml 11/16/17 06:54 11/16/17 07:05 Gastrografin 37% PO 11/16/17 06:55 90 ml ONETIME ONE Administration Hydromorphone HCl 0.5 mg 11/16/17 03:49 11/16/17 04:12 Dilaudid IVPUSH 11/16/17 03:50 0.5 mg ONETIME ONE Administration Hydromorphone HCl 1 mg 11/16/17 05:02 11/16/17 05:08 Dilaudid IVPUSH 11/16/17 05:03 1 mg ONETIME ONE Administration Hydromorphone HCl 0.5 mg 11/16/17 08:12 11/16/17 08:26 Dilaudid IVPUSH 11/16/17 08:13 0.5 mg ONETIME ONE Administration Hyoscyamine 0.125 mg 11/16/17 03:51 11/16/17 04:08 Hyomax-Sl SL 11/16/17 03:52 0.125 mg ONETIME ONE Administration Dextrose/Sodium Chloride 1,000 mls @ 500 mls/hr 11/16/17 04:00 11/16/17 04:11 Dextrose 5%-Normal Saline IV 500 mls/hr ASDIRECTED CHIKIS Administration Iopamidol 100 ml 11/16/17 06:54 11/16/17 07:05 Isovue-300 (61%) IVPUSH 11/16/17 06:55 100 ml ONETIME ONE Administration Ketorolac Tromethamine 30 mg 11/16/17 04:00 11/16/17 04:15 Toradol IVPUSH 30 mg ONETIME CHIKIS Administration Metoclopramide HCl 7.5 mg 11/16/17 03:49 11/16/17 04:11 Reglan IVPUSH 11/16/17 03:50 7.5 mg ONETIME ONE Administration Sodium Chloride 10 ml 11/16/17 06:54 11/16/17 07:05 Saline Flush FLUSH 10 ml ONETIME PRN Administration IV FLUSH - Radiology Interpretation Free Text/Narrative:: 47-year-old female presents to the ED with acute epigastric abdominal pain. Started out mildly yesterday afternoon about 1500 hrs. and then seemed to ease up a bit. She did have erosive work ribs and a baked potato with sour cream for supper and this really seemed to make things much worse. She's been up all night because of the pain. Associated nausea without ability to vomit except after taking Pepto-Bismol.. Pain is strongly colicky and is characteristic of biliary colic. I believe she is experiencing colic of her common bile duct as she's had previous cholecystectomy. Concern is for possibility of stone in the common bile duct. She reports similar type pain after taking anything with codeine in it. Very tender in the epigastrium to examination. Plan IV D5 normal saline at 500 mils per moustapha Given Dilaudid 0.5 mg IV with Toradol 30 mg IV and Reglan 7.5 mg IV for pain and nausea relief. Routine labs to be collected to include serum lipase. Serum GGT will be ordered. - Re-Assessments/Exams Free Text/Narrative Re-Assessment/Exam: 11/16/17 04:58 Part of the labs are back. White count is elevated at 15.43 with a slight left shift with 76% neutrophils but no bands reported. Hemoglobin is 13.7 with hematocrit of 38.8. Platelet count is 303,000. Sodium is 137. Potassium is low at 2.9. Chloride is 101 with a bicarbonate 26. And a gap is 12.9. BUN is 11 with a creatinine of 0.9. GFR remains greater than 60. Glucose is 106 with a calcium of 8.2. Total bilirubin is 0.3. GGT is 32 with an AST of 16 and ALT of 27. Alk phosphatase is normal at 59. C-reactive protein is less than 0.2. Lipase is normal at 156. There is no evidence of biliary tree involvement in her current pain syndrome. 11/16/17 05:02 Discussed the findings of the labs with the patient. She still having significant discomfort she still is rates the pain as 7 out of 10. X-ray , and do a KUB first but may well need to proceed with CT of the abdomen. No evidence of pancreatitis and there is no signs of biliary tree obstruction. Possibility of bowel obstruction exists although I feel less likely. Will provide her with Dilaudid 1 mg IV for further pain relief. 11/16/17 06:32 pain remains under control. She's been able to take in most of her oral contrast for CT of the abdomen and pelvis. It is tentatively going to be done around 0700 hrs.
[2017-11-16] MEDS ORDERED: Dextrose 5%-0.9% NaCl 1,000 ML IV SCH (04:00)
[2017-11-16] MEDS ORDERED: Ketorolac 30 MG/ML SDV IVPUSH SCH (04:00)
[2017-11-16] MEDS ORDERED: Iopamidol 612 MG/ML 100 ML Bottle IVPUSH ONE (06:54)
[2017-11-16] MEDS ORDERED: Diatrizoate Meglumine/Diatrizoate Sodium 37% 120 ML Bottle PO ONE (06:54)
[2017-11-16] MEDS ORDERED: Sodium Chloride 0.9% 10 ML Syringe FLUSH PRN (06:54)
--- NOTE | 2017-11-16 11:01 | CR ---
Abdomen: Supine view of the abdomen was obtained. Comparison: Prior abdominal x-ray of 09/09/11. Surgical clips are seen from prior cholecystectomy. Bowel gas pattern is normal. Calcifications are seen within the pelvis compatible with phleboliths. No additional abnormality is seen. Impression: 1. Incidental findings. Diagnostic code #2
--- NOTE | 2017-11-16 11:01 | CT ---
CT abdomen and pelvis Technique: Multiple axial sections were obtained from above the dome of the diaphragm inferiorly through the pubic symphysis. Intravenous and oral contrast was utilized. Delayed images were also obtained through the bladder. Comparison: Prior CT exam of 12/12/13. Findings: Visualized lung bases show nothing acute. Cyst is identified within the right lobe of the liver measuring 2.7 cm which has increased in size from previous CT exam at which time it measured 2.0 cm. No additional abnormality is seen within the liver. Surgical clips are seen from prior cholecystectomy. Spleen appears within normal limits. Adrenal glands show no nodule. Kidneys show symmetric contrast enhancement without hydronephrosis or mass. Pancreas appears within normal limits. Aorta shows no aneurysmal dilatation. No retroperitoneal adenopathy or mesenteric abnormalities are seen. Multiple small cysts are seen within the right ovary. Mild amount of fluid is seen within the cul-de-sac. Mild increased stool is noted within the colon. Appendix is not visualized. Bone window settings were reviewed which shows disc space narrowing at L5-S1 with vacuum disc phenomena and posterior spurring. Impression: 1. Increasing size of a right sided liver cyst which is incidental. Previous cholecystectomy. 2. Mild increased stool within the colon. 3. Small cysts within the right ovary. Mild amount of fluid is seen within the pelvis. Fluid is most likely physiologic. 4. Other incidental findings. Nothing acute is appreciated. Diagnostic code #2
== END 2017-11-16 09:47 | disposition home or self-care (01) ==
LOC: JD.ED 03:24
DX: K29.00 Acute gastritis without bleeding (principal); N39.0 Urinary tract infection, site not specified; I10 Essential (primary) hypertension; J45.909 Unspecified asthma, uncomplicated; F41.9 Anxiety disorder, unspecified; F17.210 Nicotine dependence, cigarettes, uncomplicated; F32.9 Major depressive disorder, single episode, unspecified; Z86.73 Personal history of transient ischemic attack (TIA), and cerebral infarction without residual deficits
CPT/HCPCS: 36415; 74018; 74177; 80053; 81001; 82977; 83690; 85007; 85027; 86140; 87086; 87088; 96361; 96374; 96375; 96376; 99285; A9270; J1170; J1885; J2765; J7042; J7050; Q9963; Q9967; 99284